=== PATIENT | male | born 1985 | race Caucasian/White ===

== ENCOUNTER 2018-05-11 08:31 | Emergency (ER) | payer OTHER ==
[2018-05-11 09:17] LABS: BASO % 0.2 % (0.0-1.0); EOS # 0.1 10^3/uL (0.0-0.50); EOS % 0.6 % (0.0-3.0); HEMATOCRIT 47.9 % (42.0-52.0); HEMOGLOBIN 16.7 g/dl (13.5-17.5); IMMATURE GRANULOCYTE % 0.3 % (0-3.0); LYMPH # 1.2 10^3/uL (1.5-4.5); LYMPH % 12.4 % (24.0-44.0); MEAN CORPUSCULAR HGB CONC 34.9 g/dl (32.0-36.5); MEAN CORPUSCULAR VOLUME 86.2 fl (80.0-96.0); MONO # 0.7 10^3/uL (0.0-0.8); MONO % 7.3 % (0.0-5.0); NEUTROPHILS # 7.8 10^3/uL (1.8-7.7); NEUTROPHILS % 79.2 % (36.0-66.0); PLATELET COUNT, AUTOMATED 197 10^3/uL (150-450); RED BLOOD COUNT 5.56 10^6/uL (4.30-6.10); RED CELL DISTRIBUTION WIDTH 11.9 % (11.5-14.5); WHITE BLOOD COUNT 9.8 10^3/uL (4.0-10.0)
[2018-05-11 09:35] LABS: ANION GAP 7 MEQ/L (8-16); BLOOD UREA NITROGEN 15 MG/DL (7-18); C REACTIVE PROTEIN QUANTITATIV 2.72 MG/DL (0.00-0.30); CALCIUM LEVEL 8.9 MG/DL (8.5-10.1); CARBON DIOXIDE LEVEL 26 MEQ/L (21-32); CHLORIDE LEVEL 106 MEQ/L (98-107); CREATININE FOR GFR 1.32 MG/DL (0.70-1.30); GLOMERULAR FILTRATION RATE > 60.0 (>60); GLUCOSE, FASTING 126 MG/DL (70-100); SODIUM LEVEL 139 MEQ/L (136-145); URIC ACID 8.2 MG/DL (3.5-7.2)
[2018-05-11 09:59] LABS: ERYTHROCYTE SEDIMENTATION RATE 4 mm/hr (0-15)
[2018-05-11] MEDS: INDOMETHACIN 25 MG CAP PO (10:22)
== END 2018-05-11 10:37 | disposition home or self-care (01) ==
LOC: M ED 08:31
DX: M10.071 Idiopathic gout, right ankle and foot (principal)
CPT/HCPCS: 73610

== ENCOUNTER → 2018-11-15 | Outpatient (CLI) | payer OTHER ==
[~2018-11-15] MED LIST: ACET-683 PO; CONRAY-43 43% 50ML VIAL (Q9960) As Ordered ONE; IBUP-1114 PO; PRED20TA PO; PROHANCE 279.3MG/ML 5ML VIAL (A9576) As Ordered ONE
--- NOTE | 2018-11-15 10:19 | REP ---
MR ARTHROGRAM LEFT SHOULDER: TECHNIQUE: Axial T2 fat sat, coronal oblique T1, T2 fat sat, post arthrogram axial T1 fat sat, proton density, coronal oblique T1 fat sat, T2 sat, sagittal oblique T2 fat sat, ABER T1 fat sat. There is a partial thickness tear at the anterior aspect of the distal supraspinatus tendon. There is mild tendinopathy of the subscapularis tendon. The patient has had prior excision of the distal end of the clavicle. The acromion is type 2. Biceps tendon is within the bicipital groove with no tenosynovitis. There is no Hill-Sachs deformity. The deltoid muscle demonstrates no abnormal signal. There is fraying of the biceps labral complex. There appears to be a tear of the superior labrum. The anterior labrum also appears partially torn. A tiny subchondral cyst is seen in the superolateral humeral head. There is no occult fracture or bone marrow edema. There is a normal amount of joint fluid. No paralabral cyst is seen. IMPRESSION: Partial thickness undersurface tear at the distal insertion of the supraspinatus tendon anteriorly. There is mild subscapularis tendinopathy. There has been excision of the distal end of the clavicle previously. The acromion is type 2. There is fraying of the biceps labral complex and there appears to be a SLAP tear. The anterior labrum appears partially torn. Electronically Signed by Ramírez Lopez MD 11/15/2018 04:19 P
--- NOTE | 2018-11-15 17:03 | REP ---
Procedure: Left shoulder arthrogram The procedure was performed under the direct supervision of Dr. Lopez. History: Left shoulder pain The benefits and risks including but not limited to pain, infection, bleeding and anaphylaxis were explained to the patient and informed consent was obtained. Technique: The left glenohumeral joint space was localized using fluoroscopic guidance. The skin was prepped and draped in a sterile fashion. 1% lidocaine was used as a local anesthetic. Using fluoroscopic guidance a 22 gauge spinal needle was inserted and advanced into the joint. 0.5 ml of Conray 43 was injected to verify placement. 11 ml of a solution containing 20 ml of sterile saline and 0.15 ml of ProHance was injected into the joint. The needle was removed and the patient was taken to MRI for postprocedural imaging. The patient tolerated the procedure well and there were no immediate complications. Less than 6 seconds of fluoro time was utilized for this procedure. Reviewed by FOSTER Morales 11/15/2018 04:40 P Electronically Signed by Ramírez Lopez MD 11/15/2018 04:53 P
== END ==
LOC: M RADPRO 06:06
PROVIDERS: ATTEND Orthopaedic Surgery
DX: S46.012A Strain of muscle(s) and tendon(s) of the rotator cuff of left shoulder, initial encounter (principal); X58.XXXA Exposure to other specified factors, initial encounter; Y92.89 Other specified places as the place of occurrence of the external cause; Y93.89 Activity, other specified; Y99.8 Other external cause status
CPT/HCPCS: 23350; 73223; 77002; A9576; Q9960